=== PATIENT | female | born 1945 | race Caucasian/White ===

== ENCOUNTER 2018-01-29 15:55 | Outpatient (REF) | payer MEDICARE, MEDICAID, SELFPAY ==
[2018-01-29 17:07] LABS: Abs Immature Grans 0.01 k/cumm (0.0-0.09); Absolute Basophil Count 0.03 k/cumm (0.0-0.2); Absolute Eosinophil Count 0.23 k/cumm (0.0-0.7); Absolute Lymphocyte Count 1.14 k/cumm (1.2-3.4); Absolute Neutrophil Count 4.61 k/cumm (1.2-6.7); Basophils % 0.5; Eosinophils % 3.5; HCT 41.4 % (36.0-46.0); HGB 13.7 g/dL (12.0-15.5); Immature Grans % 0.2; Lymphocytes % 17.5; Mean Corp. HGB Concentration 33.1 g/dL (32.0-36.0); Mean Corpuscular Hemoglobin 31.2 pg (27.0-33.0); Mean Corpuscular Volume 94.3 fL (80-95); Mean Platelet Volume 11.7 fL (8.0-11.0); Monocytes % 7.7; Neutrophils % 70.6; Platelet Count 278 x1000/uL (130-400); RBC 4.39 m/cumm (4.00-5.20); RBC Distribution Width 14.1 % (11.7-14.6); White Blood Cell Count 6.52 k/cumm (4.4-10.8)
[2018-01-29 17:23] LABS: Lithium 0.51 mmol/L (0.60-1.20)
[2018-01-29 17:29] LABS: ALT 14 U/L (12-78); AST 14 U/L (15-37); Albumin 3.1 g/dL (3.4-5.0); Alkaline Phosphatase 77 U/L (46-116); Anion Gap 7.1 mmol/L (3-11); BUN 5 mg/dL (7-18); Bilirubin, Total 0.3 mg/dL (0.2-1.0); CO2 26.9 mmol/L (21.0-32.0); CREATININE 0.88 mg/dL (0.55-1.02); Calcium 9.2 mg/dL (8.5-10.1); Chloride 106 mmol/L (98-107); Glucose 118 mg/dL (70-100); PHOSPHORUS 2.8 mg/dL (2.6-4.7); Potassium 3.5 mmol/L (3.5-5.1); Sodium 140 mmol/L (136-145)
[2018-01-30 16:12] LABS: Hemoglobin A1C 5.2 % (4.5-6.2)
[2018-01-30 22:43] LABS: Cholesterol 160 mg/dL (50-200); HDL Cholesterol 52 mg/dL (40-60); LDL CHOLESTEROL 85 mg/dL (<100); TSH 10.12 uIU/mL (0.358-3.74); Triglyceride 130 mg/dL (30-150); Vitamin B12 450 pg/mL (193-986)
[2018-02-02 10:08] LABS: Folate 10.8 ng/ml
[2018-02-02 10:18] LABS: HIV-1/2 Ag & Ab Screen Negative (NEGAT)
[2018-02-02 11:08] LABS: Syphilis Serology (RPR) Negative (Negative)
[2018-02-03 12:21] LABS: T4, Free 1.3 ng/dl (0.8-2.2)
== END 2018-01-29 16:15 ==
LOC: LBN 15:55
PROVIDERS: Visit Provider Family Medicine
DX: E05.90 Thyrotoxicosis, unspecified without thyrotoxic crisis or storm (principal); Z51.81 Encounter for therapeutic drug level monitoring; Z79.899 Other long term (current) drug therapy; Z11.4 Encounter for screening for human immunodeficiency virus [HIV]; D64.9 Anemia, unspecified; I10 Essential (primary) hypertension; R62.7 Adult failure to thrive; F31.2 Bipolar disorder, current episode manic severe with psychotic features; F25.9 Schizoaffective disorder, unspecified; E03.9 Hypothyroidism, unspecified; E78.5 Hyperlipidemia, unspecified
CPT/HCPCS: 80053; 80061; 80069; 83721; 87389; 80178; 82607; 82746; 83036; 84439; 84443; 85025; 86592

== ENCOUNTER 2018-10-02 20:39 | Outpatient (REF) | payer MEDICARE, MEDICAID, SELFPAY ==
[2018-10-02 21:21] LABS: Abs Immature Grans 0.02 k/cumm (0.0-0.09); Absolute Basophil Count 0.01 k/cumm (0.0-0.2); Absolute Eosinophil Count 0.09 k/cumm (0.0-0.7); Absolute Lymphocyte Count 0.81 k/cumm (1.2-3.4); Absolute Monocyte Count 0.77 k/cumm (0.11-0.7); Absolute Neutrophil Count 7.44 k/cumm (1.2-6.7); Basophils % 0.1; HGB 10.9 g/dL (12.0-15.5); Immature Grans % 0.2; Lymphocytes % 8.9; Mean Corp. HGB Concentration 31.1 g/dL (32.0-36.0); Mean Corpuscular Hemoglobin 28.9 pg (27.0-33.0); Mean Corpuscular Volume 92.8 fL (80-95); Mean Platelet Volume 11.4 fL (8.0-11.0); Monocytes % 8.4; Neutrophils % 81.4; Platelet Count 286 x1000/uL (130-400); RBC 3.77 m/cumm (4.00-5.20); RBC Distribution Width 14.7 % (11.7-14.6); White Blood Cell Count 9.14 k/cumm (4.4-10.8)
[2018-10-02 21:24] LABS: ALT 35 U/L (12-78); AST 57 U/L (15-37); Albumin 1.7 g/dL (3.4-5.0); Alkaline Phosphatase 126 U/L (46-116); Anion Gap 8.6 mmol/L (3-11); BUN 13 mg/dL (7-18); Bilirubin, Total 0.4 mg/dL (0.2-1.0); CO2 29.4 mmol/L (21.0-32.0); CREATININE 0.57 mg/dL (0.55-1.02); Calcium 8.3 mg/dL (8.5-10.1); Chloride 107 mmol/L (98-107); Glucose 98 mg/dL (70-100); Potassium 3.2 mmol/L (3.5-5.1); Sodium 145 mmol/L (136-145); Total Protein 5.1 g/dL (6.4-8.2)
== END 2018-10-02 20:59 ==
LOC: LBN 20:39
PROVIDERS: Visit Provider Family Medicine
DX: M62.81 Muscle weakness (generalized) (principal); I10 Essential (primary) hypertension
CPT/HCPCS: 80053; 85025

== ENCOUNTER 2019-11-09 15:47 | Outpatient (REF) | payer MEDICARE, MEDICAID, SELFPAY ==
[2019-11-09 13:56] LABS: HCT 43.1 % (36.0-46.0); HGB 13.4 g/dL (11.2-15.7)
[2019-11-09 14:30] LABS: ALT 15 U/L (14-59); AST 14 U/L (15-37); Albumin 2.7 g/dL (3.4-5.0); Alkaline Phosphatase 79 U/L (46-116); Anion Gap 6.6 mmol/L (3-11); BUN 21 mg/dL (7-18); Bilirubin, Total 0.2 mg/dL (0.2-1.0); CO2 29.4 mmol/L (21.0-32.0); CREATININE 0.62 mg/dL (0.55-1.02); Calcium 8.5 mg/dL (8.5-10.1); Chloride 108 mmol/L (98-107); Glucose 71 mg/dL (74-106); Potassium 4.3 mmol/L (3.5-5.1); Sodium 144 mmol/L (136-145); Total Protein 5.5 g/dL (6.4-8.2); Vitamin B12 259 pg/mL (193-986)
[2019-11-11 05:25] LABS: Vitamin D 25 Total 24.1 ng/ml (30-100)
== END 2019-11-09 16:07 ==
LOC: LBN 15:47
PROVIDERS: Visit Provider Family Medicine
DX: E43 Unspecified severe protein-calorie malnutrition (principal); R62.7 Adult failure to thrive
CPT/HCPCS: 80053; 82306; 82607; 85014; 85018

== ENCOUNTER 2022-01-18 16:11 | Outpatient (REF) | payer MEDICARE, MEDICAID, SELFPAY ==
[2022-01-18 16:06] LABS: Bilirubin Negative (Negative); Blood Trace-intact (Negative); Clarity Cloudy (Clear); Glucose Negative (Negative); Ketones Negative (Negative); Leukocyte Esterase Large (Negative); Nitrite Negative (Negative); pH >= 9.0 (5-8)
[2022-01-18 16:12] LABS: Bacteria Many HPF (Negative); Epithelial Cells Rare HPF (Negative)
[2022-01-18 16:13] LABS: C & S Indicated? C&S Done As Ordered; Casts Negative LPF (Negative); Crystals Many Triple Phos HPF (Negative); Mucus Negative (Negative)
== END 2022-01-18 16:12 | disposition home or self-care (01) ==
LOC: LBN 16:11
PROVIDERS: PCP Family Medicine; Visit Provider Family Medicine
DX: N39.0 Urinary tract infection, site not specified (principal)
CPT/HCPCS: 87077; 81003; 81015; 87086; 87186

== ENCOUNTER 2022-01-23 21:32 | Outpatient (REF) | payer MEDICARE, MEDICAID, SELFPAY ==
[2022-01-23 22:41] LABS: TSH 3.45 uIU/mL (0.36-3.74)
== END 2022-01-23 21:33 | disposition home or self-care (01) ==
LOC: LBN 21:32
PROVIDERS: PCP Family Medicine; Visit Provider Family Medicine
DX: E03.9 Hypothyroidism, unspecified (principal)
CPT/HCPCS: 84443

== ENCOUNTER 2022-02-28 21:20 | Outpatient (REF) | payer MEDICARE, MEDICAID, SELFPAY ==
[2022-02-28 22:34] LABS: Bilirubin Negative (Negative); Blood Trace-intact (Negative); Clarity Cloudy (Clear); Glucose Negative (Negative); Ketones Negative (Negative); Leukocyte Esterase Large (Negative); Nitrite Positive (Negative); Urobilinogen 0.2 EU/dL (Up TO 0.2); pH >= 9.0 (5-8)
[2022-02-28 22:47] LABS: Bacteria Many HPF (Negative); C & S Indicated? Yes; Crystals Many Triple Phos HPF (Negative); Epithelial Cells Rare HPF (Negative); Mucus Moderate (Negative); WBC >50 HPF (0-5)
== END 2022-02-28 21:21 | disposition home or self-care (01) ==
LOC: NCHCN 21:20
PROVIDERS: PCP Family Medicine; Visit Provider Family Medicine
DX: N39.0 Urinary tract infection, site not specified (principal)
CPT/HCPCS: 87077; 81003; 81015; 87086; 87186

== ENCOUNTER 2023-03-18 20:46 | Outpatient (REF) | payer MEDICARE, MEDICAID, SELFPAY ==
[2023-03-18 15:15] LABS: TSH 1.89 uIU/mL (0.36-3.74)
--- OUTSIDE RECORDS SUMMARY | 2023-03-18 20:48 | XMS_ITS | CCD ---
Author Name Unknown Address [address] [place] [address] [phone] Organization Unknown Address [address] [place] [address] [phone] Care Team Providers Care [place] Opener Name Role Phone ELIJAH ROLDAN Attending Physician [phone] Vital Signs Unknown or Not Available. Allergies Allergy Code Allergy Type Reaction Status PENICILLINS (CLASS) 52561 Drug allergy UNKNOWN Act kane SULFA (sulfonamide) 0 Drug allergy LIP SWELLING A ctive cipro {Clinical monitoring unavailable} 0 Drug al lergy SWELLING Active Procedures Unknown or Not Available. History of Immunizations Immunization Code Date Pneumococcal conjugate PCV 13 133 Problems Problem Code Start Date Resolved Date Status Schizoaffective disorder 70998254 Active History of coronary artery d isease with stent placement 530007938 Active Bipolar disorder 32890094 Active Altered mental status 353392606 Act kane Developmental delay 758087758 Activ e Dementia 56834652 Active Sepsis 63077476 Active Urinary tract infection 25478691 A ctive Hypotension 72976700 Active Poor responsiveness 205285887 Activ e Acute kidney injury 32530033 Activ e Hypoxia 955429367 Active Bacteremia caused by Gram-ne gative bacteria 860247801310 Active LVH - Left ventricular hypertrophy 20704808 0 12/11/2022 Resolved History of cataract extraction 523520553 12/11 Resolved CORONARY ATHEROSCLEROSIS OF [place] CORONARY ARTERY 7099718587028 12/11/2022 Resolved Mental retardation 99408459 12/11/2022 Resolv ed Hypertension 59655034 12/11/2022 Resolved Hyperlipidemia 72796724 12/11/2022 Resolved History of myocardial infarction 516435458 Resolved History of attempted suicide 864187108 023 Resolved Tardive dyskinesia 235486851 12/11/2022 Resolv ed Major depression 592171472 12/11/2022 Resolved History of renal failure 458704506 12/11/2022 Resolved History of facial injury 447095115 12/11/2022 Resolved Unspecified hemorrhoids 06367966 12/11/2022 R esolved Results Unknown or Not Available. Active Medications Medication Code Dose Units Frequency Route Modificatio n Start Date/Time Cephalexin 500MG Oral Capsule 101383 1 CAPSULE THREE TIMES A DAY ORAL 12/16/2022 11:10 Prescription Detail TAKE 1 CAPSULE ORAL THREE TIMES A DAY TH ROUGH 12/20/22. FIRST DOSE IN AM ON 12/17/22. Acetaminophen 650MG Rectal Suppository 080191 650 MILLIGRAMS NEEDED EVERY 4 HOURS RECTAL 12/16/2022 11:06 Prescription Detail INSERT 650 MILLIGRAMS RECTAL NEEDED E VERY 4 HOURS Aspirin 81MG Oral Tablet, Chewable 685152 81 MILLIGRAMS DAILY ORAL 11:06 Prescription Detail TAKE 81 MILLIGRAMS ORAL DAILY Benztropine Mesylate 0.5MG Oral Tablet 950444 0.5 MILLIGRAMS TWICE A DAY ORAL 12/16/2022 11:06 Prescription Detail TAKE 0.5 MILLIGRAMS ORAL TWICE A DAY clonazePAM 0.5MG Oral Tablet, Disintegrating 055455 0.5 MILLIGRAMS DAILY ORAL 11/29 11:06 Prescription Detail TAKE 0.5 MILLIGRAMS ORAL DAILY clonazePAM 1MG Oral Tablet 633537 1 MILLIGRAMS DAILY ORAL 023 11:06 Prescription Detail TAKE 1 MILLIGRAMS ORAL DAILY Docusate 100MG Oral Capsule, Liquid Filled 2216311 100 MILLIGRAMS NEEDED DAILY ORAL 12/16/2022 11:06 Prescription Detail TAKE 100 MILLIGRAMS ORAL NEEDED DAILY guaiFENesin 100MG/5ML Oral Syrup 1137768336 0 10 mL NEEDED EVERY 6 HOURS ORAL 12/16/2022 11:06 Prescription Detail TAKE 10 mL ORAL NEEDED EVERY 6 HOURS Levothyroxine Sodium 88MCG Oral Tablet 794469 88 MCG DAILY ORAL 12/17/19 11:06 Prescription Detail TAKE 88 MCG ORAL DAILY Morphine Sulfate 20MG/1ML Oral Solution 787117 0.5 mL TWICE A DAY ORAL 12/16/2022 11:06 Prescription Detail TAKE 0.5 mL ORAL TWICE A DAY Morphine Sulfate 20MG/1ML Oral Solution 280421 0.25 mL NEEDED EVERY 4 HOURS ORAL 12/16/2022 11:06 Prescription Detail TAKE 0.25 mL ORAL NEEDED EVERY 4 HOUR S Polyethylene Glycol 17GM/1Dose Oral Powder for Solution 6629242639 0 1 EACH DAILY ORAL 12/16/2022 11:06 Prescription Detail TAKE 1 EACH ORAL DAILY Potassium Chloride 10MEQ Oral Tablet, Extended Release 816700 1 TABLET TWICE A DAY ORAL 12/16/2022 11:06 Prescription Detail TAKE 1 TABLET ORAL TWICE A DAY Remeron 15MG Oral Tablet 675129 7.5 MILLIGRAMS EVERY EVENING ORAL 12/16/2022 11:06 Prescription Detail TAKE 7.5 MILLIGRAMS ORAL EVERY EVENING RisperDAL 2MG Oral Tablet 939684 2 MILLIGRAMS TWICE A DAY ORAL 12/16/2022 11:06 Prescription Detail TAKE 2 MILLIGRAMS ORAL TWICE A DAY Voltaren Gel 1% Topical application Gel/Jelly 672612 1 EACH NEEDED EVERY 4 HOURS TOPICAL APPLICATION 12/16/2022 11:06 Prescription Detail 1 EACH TOPICAL APPLICATION NEEDED AUGUSTUS RY 4 HOURS Acetaminophen 325MG Oral Tablet 263522 650 MILLIGRAMS NEEDED EVERY 4HRS ORAL 05/16/2014 08:01 Prescription Detail TAKE 650 MILLIGRAMS ORAL NEEDED EVERY 4HRS Bisacodyl 5MG Oral Tablet, Enteric Coated 718635 5 MILLIGRAMS NEEDED DAILY ORAL 04/26/2014 10:05 Prescription Detail TAKE 5 MILLIGRAMS ORAL NEEDED DAILY Senna 8.6MG Oral Tablet 278943 8.6 MILLIGRAMS NEEDED DAILY ORAL 08/29/2013 06:52 Prescription Detail TAKE 8.6 MILLIGRAMS ORAL NEEDED DAILY Simvastatin 20MG Oral Tablet 660490 20 MILLIGRAMS EVERY EVENING ORAL 08/29/2013 06:52 Prescription Detail TAKE 20 MILLIGRAMS ORAL EVERY EVENING Medications Administered During Visit Unknown or Not Available. Encounters Encounter Diagnosis Diagnosis Code Start Date Urinary tract infection, site not specified N390 12/11/2022 Social History Smoking Status Code Start Date End Date Former smoker 5394142 Patient Decision Aids Unknown or Not Available. Discharge Instructions You were admitted to [facility] on 12/11/2022 00:56 with a principal diagnosis of Urinary tract infection, site not specified You were discharged from [facility] on 12/16/2022 00:56 Should you have any questions prior to discharge, please contact a member of your healthcare team. If you have left the hospital and have any questions, please contact your primary care physician. Chief Complaint and Reason For Visit Unknown or Not Available. Function Status Unknown or Not Available. Plan of Care Unknown or Not Available. Referral/Transition of Care Unknown or Not Available.
--- OUTSIDE RECORDS SUMMARY | 2023-03-18 20:48 | XMS_ITS | CCD ---
Author Name Unknown Address [address] [place] [address] [phone] Organization Unknown Address [address] [place] [address] [phone] Care Team Providers Care Dupligraph Operator Name Role Phone RANDELL SANTO Attending Physician [phone] Vital Signs Unknown or Not Available. Allergies Allergy Code Allergy Type Reaction Status PENICILLINS (CLASS) 07212 Drug allergy UNKNOWN Act kane SULFA (sulfonamide) 0 Drug allergy LIP SWELLING A ctive Procedures Unknown or Not Available. History of Immunizations Immunization Code Date Pneumococcal conjugate PCV 13 133 Problems Problem Code Start Date Resolved Date Status Schizoaffective disorder 88539336 Active History of coronary artery d isease with stent placement 970850408 Active Bipolar disorder 74110234 Active Altered mental status 852169919 Act kane Developmental delay 971313888 Activ e Dementia 78185609 Active Sepsis 57914909 Active Urinary tract infection 85694372 A ctive Hypotension 15482514 Active Poor responsiveness 837051593 Activ e Acute kidney injury 62619849 Activ e Hypoxia 849209331 Active Bacteremia caused by Gram-ne gative bacteria 489965485196 Active LVH - Left ventricular hypertrophy 23192851 0 12/11/2022 Resolved History of cataract extraction 348632352 12/11 Resolved CORONARY ATHEROSCLEROSIS OF [place] CORONARY ARTERY 0993823012990 12/11/2022 Resolved Mental retardation 11381037 12/11/2022 Resolv ed Hypertension 81737740 12/11/2022 Resolved Hyperlipidemia 42289894 12/11/2022 Resolved History of myocardial infarction 539724878 Resolved History of attempted suicide 873821631 023 Resolved Tardive dyskinesia 351333177 12/11/2022 Resolv ed Major depression 662539788 12/11/2022 Resolved History of renal failure 555966743 12/11/2022 Resolved History of facial injury 144510619 12/11/2022 Resolved Unspecified hemorrhoids 77923964 12/11/2022 R esolved Results Unknown or Not Available. Active Medications Medication Code Dose Units Frequency Route Modificatio n Start Date/Time Cephalexin 500MG Oral Capsule 964070 1 CAPSULE THREE TIMES A DAY ORAL 12/16/2022 11:10 Prescription Detail TAKE 1 CAPSULE ORAL THREE TIMES A DAY TH ROUGH 12/20/22. FIRST DOSE IN AM ON 12/17/22. Acetaminophen 650MG Rectal Suppository 273743 650 MILLIGRAMS NEEDED EVERY 4 HOURS RECTAL 12/16/2022 11:06 Prescription Detail INSERT 650 MILLIGRAMS RECTAL NEEDED E VERY 4 HOURS Aspirin 81MG Oral Tablet, Chewable 635801 81 MILLIGRAMS DAILY ORAL 11:06 Prescription Detail TAKE 81 MILLIGRAMS ORAL DAILY Benztropine Mesylate 0.5MG Oral Tablet 947544 0.5 MILLIGRAMS TWICE A DAY ORAL 12/16/2022 11:06 Prescription Detail TAKE 0.5 MILLIGRAMS ORAL TWICE A DAY clonazePAM 0.5MG Oral Tablet, Disintegrating 026124 0.5 MILLIGRAMS DAILY ORAL 11/29 11:06 Prescription Detail TAKE 0.5 MILLIGRAMS ORAL DAILY clonazePAM 1MG Oral Tablet 054000 1 MILLIGRAMS DAILY ORAL 023 11:06 Prescription Detail TAKE 1 MILLIGRAMS ORAL DAILY Docusate 100MG Oral Capsule, Liquid Filled 7684606 100 MILLIGRAMS NEEDED DAILY ORAL 12/16/2022 11:06 Prescription Detail TAKE 100 MILLIGRAMS ORAL NEEDED DAILY guaiFENesin 100MG/5ML Oral Syrup 9003254193 0 10 mL NEEDED EVERY 6 HOURS ORAL 12/16/2022 11:06 Prescription Detail TAKE 10 mL ORAL NEEDED EVERY 6 HOURS Levothyroxine Sodium 88MCG Oral Tablet 393748 88 MCG DAILY ORAL 12/17/19 11:06 Prescription Detail TAKE 88 MCG ORAL DAILY Morphine Sulfate 20MG/1ML Oral Solution 000017 0.5 mL TWICE A DAY ORAL 12/16/2022 11:06 Prescription Detail TAKE 0.5 mL ORAL TWICE A DAY Morphine Sulfate 20MG/1ML Oral Solution 348737 0.25 mL NEEDED EVERY 4 HOURS ORAL 12/16/2022 11:06 Prescription Detail TAKE 0.25 mL ORAL NEEDED EVERY 4 HOUR S Polyethylene Glycol 17GM/1Dose Oral Powder for Solution 6922030996 0 1 EACH DAILY ORAL 12/16/2022 11:06 Prescription Detail TAKE 1 EACH ORAL DAILY Potassium Chloride 10MEQ Oral Tablet, Extended Release 747650 1 TABLET TWICE A DAY ORAL 12/16/2022 11:06 Prescription Detail TAKE 1 TABLET ORAL TWICE A DAY Remeron 15MG Oral Tablet 600937 7.5 MILLIGRAMS EVERY EVENING ORAL 12/16/2022 11:06 Prescription Detail TAKE 7.5 MILLIGRAMS ORAL EVERY EVENING RisperDAL 2MG Oral Tablet 140516 2 MILLIGRAMS TWICE A DAY ORAL 12/16/2022 11:06 Prescription Detail TAKE 2 MILLIGRAMS ORAL TWICE A DAY Voltaren Gel 1% Topical application Gel/Jelly 171042 1 EACH NEEDED EVERY 4 HOURS TOPICAL APPLICATION 12/16/2022 11:06 Prescription Detail 1 EACH TOPICAL APPLICATION NEEDED AUGUSTUS RY 4 HOURS Acetaminophen 325MG Oral Tablet 488545 650 MILLIGRAMS NEEDED EVERY 4HRS ORAL 05/16/2014 08:01 Prescription Detail TAKE 650 MILLIGRAMS ORAL NEEDED EVERY 4HRS Bisacodyl 5MG Oral Tablet, Enteric Coated 094617 5 MILLIGRAMS NEEDED DAILY ORAL 04/26/2014 10:05 Prescription Detail TAKE 5 MILLIGRAMS ORAL NEEDED DAILY Senna 8.6MG Oral Tablet 204610 8.6 MILLIGRAMS NEEDED DAILY ORAL 08/29/2013 06:52 Prescription Detail TAKE 8.6 MILLIGRAMS ORAL NEEDED DAILY Simvastatin 20MG Oral Tablet 599790 20 MILLIGRAMS EVERY EVENING ORAL 08/29/2013 06:52 Prescription Detail TAKE 20 MILLIGRAMS ORAL EVERY EVENING Medications Administered During Visit Unknown or Not Available. Encounters Encounter Diagnosis Diagnosis Code Start Date Acute kidney failure, unspecified N179 12/11/2022 Social History Smoking Status Code Start Date End Date Former smoker 8304140 Patient Decision Aids Unknown or Not Available. Discharge Instructions You were admitted to [facility] on 12/11/2022 10:45 with a principal diagnosis of Acute kidney failure, unspecified You were discharged from [facility] on 12/11/2022 16:36 Should you have any questions prior to [...]
--- OUTSIDE RECORDS SUMMARY | 2023-03-18 20:49 | XMS_ITS | CCD ---
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 BMI (Body Mass Index) 23.77 kg/m^2 12/11/2022 12: 24 Initial VS Weight Measured 147.3 lbs 12/11/2022 12:24 Ini tial VS Height 66 in 12/11/2022 12:24 Initial VS BSA (Body Surface Area) 1.76 m^2 12/11/2022 1 2:24 Initial VS BP Systolic 80 mmHg 12/11/2022 12:24 Initial VS BP Diastolic 64 mmHg 12/11/2022 12:24 Initia l VS Respiratory Rate 16 bpm 12/11/2022 12:24 In itial VS Heart Rate 108 bpm 12/11/2022 12:24 Initial VS O2 % BldC Oximetry 94 % 12/11/2022 12:24 Initial VS Body Temperature 36.4 degrees 12/11/2022 12:24 In itial VS BP Systolic 144 mmHg 12/16/2022 07:50 Most Re cent VS BP Diastolic 62 mmHg 12/16/2022 07:50 Most R ecent VS Respiratory Rate 18 bpm 12/16/2022 07:[address] Recent VS Heart Rate 72 bpm 12/16/2022 07:50 Most Rec ent VS O2 % BldC Oximetry 94 % 12/16/2022 07:50 Most Recent VS Body Temperature 36.1 degrees 12/16/2022 07:[address] Recent VS Allergies Allergy Code Allergy Type Reaction Status PENICILLINS (CLASS) 46236 Drug allergy UNKNOWN Act kane SULFA (sulfonamide) 0 Drug allergy LIP SWELLING A ctive cipro {Clinical monitoring unavailable} 0 Drug al lergy SWELLING Active Procedures Unknown or Not Available. History of Immunizations Immunization Code Date Pneumococcal conjugate PCV 13 133 Problems Problem Code Start Date Resolved Date Status Schizoaffective disorder 00768407 Active History of coronary artery d isease with stent placement 964989592 Active Bipolar disorder 94338508 Active Altered mental status 960013104 Act kane Developmental delay 154734925 Activ e Dementia 01035372 Active Sepsis 89814874 Active Urinary tract infection 76199798 A ctive Hypotension 92082667 Active Poor responsiveness 781690371 Activ e Acute kidney injury 20366244 Activ e Hypoxia 187788836 Active Bacteremia caused by Gram-ne gative bacteria 447422699107 Active LVH - Left ventricular hypertrophy 81762699 0 12/11/2022 Resolved History of cataract extraction 698563953 12/11 Resolved CORONARY ATHEROSCLEROSIS OF [place] CORONARY ARTERY 5719594649955 12/11/2022 Resolved Mental retardation 33739246 12/11/2022 Resolv ed Hypertension 83530902 12/11/2022 Resolved Hyperlipidemia 12177826 12/11/2022 Resolved History of myocardial infarction 002685964 Resolved History of attempted suicide 842258109 023 Resolved Tardive dyskinesia 895413740 12/11/2022 Resolv ed Major depression 607024648 12/11/2022 Resolved History of renal failure 624543628 12/11/2022 Resolved History of facial injury 145434156 12/11/2022 Resolved Unspecified hemorrhoids 45796691 12/11/2022 R esolved Results BASIC METABOLIC PANEL (BMP) - Collect Date/Time: 12/16/2022 06:44 Test Name Code Test Result Test Units Test Ref Rang e GLUCOSE 2345-7 119 mg/dL L=70 H=116 BUN 3094-0 23 mg/dL L=6 H=25 CREATININE 2160-0 0.83 mg/dL L=0.51 H=0.95 SODIUM SERUM 2951-2 150 mmol/L L=136 H=145 POTASSIUM SERUM 2823-3 3.2 mmol/L L=3.4 H=5 .2 CHLORIDE SERUM 2075-0 118 mmol/L L=96 H=110 CARBON DIOXIDE (CO2) 2028-9 26 mmol/L L=22 H=34 ANION GAP 09096-8 6.1 mmol/L CALCIUM SERUM 48782-7 7.6 mg/dL L=8.2 H=10. 2 AGE 77 years eGFR (non-Afr.Amer.) 11673-3 67 mL/min eGFR (Afr-Cambodian) 91298-3 81 mL/min BASIC METABOLIC PANEL (BMP) - Collect Date/Time: 12/14/2022 09:25 Test Name Code Test Result Test Units Test Ref Rang e GLUCOSE 2345-7 105 mg/dL L=70 H=116 BUN 3094-0 32 mg/dL L=6 H=25 CREATININE 2160-0 1.07 mg/dL L=0.51 H=0.95 SODIUM SERUM 2951-2 150 mmol/L L=136 H=145 POTASSIUM SERUM 2823-3 3.8 mmol/L L=3.4 H=5 .2 CHLORIDE SERUM 2075-0 118 mmol/L L=96 H=110 CARBON DIOXIDE (CO2) 8-9 24 mmol/L L=22 H=34 ANION GAP 68017-1 7.7 mmol/L CALCIUM SERUM 10120-5 7.8 mg/dL L=8.2 H=10. 2 AGE 77 years eGFR (non-Afr.Amer.) 37260-2 50 mL/min eGFR (Afr-Cambodian) 03358-2 60 mL/min BASIC METABOLIC PANEL (BMP) - Collect Date/Time: 12/13/2022 06:12 Test Name Code Test Result Test Units Test Ref Rang e GLUCOSE 2345-7 150 mg/dL L=70 H=116 BUN 3094-0 48 mg/dL L=6 H=25 CREATININE 2160-0 1.49 mg/dL L=0.51 H=0.95 SODIUM SERUM 2951-2 146 mmol/L L=136 H=145 POTASSIUM SERUM 2823-3 3.1 mmol/L L=3.4 H=5 .2 CHLORIDE SERUM 2075-0 117 mmol/L L=96 H=110 CARBON DIOXIDE (CO2) 2028-9 22 mmol/L L=22 H=34 ANION GAP 59697-5 7.1 mmol/L CALCIUM SERUM 18337-4 7.9 mg/dL L=8.2 H=10. 2 AGE 77 years eGFR (non-Afr.Amer.) 18750-1 34 mL/min eGFR (Afr-Cambodian) 76763-3 41 mL/min BASIC METABOLIC PANEL (BMP) - Collect Date/Time: 12/12/2022 06:25 Test Name Code Test Result Test Units Test Ref Rang e GLUCOSE 2345-7 63 mg/dL L=70 H=116 BUN 3094-0 63 mg/dL L=6 H=25 CREATININE 2160-0 2.32 mg/dL L=0.51 H=0.95 SODIUM SERUM 2951-2 147 mmol/L L=136 H=145 POTASSIUM SERUM 2823-3 3.9 mmol/L L=3.4 H=5 .2 CHLORIDE SERUM 2075-0 115 mmol/L L=96 H=110 CARBON DIOXIDE (CO2) 2028-9 23 mmol/L L=22 H=34 ANION GAP 74118-8 9.0 mmol/L CALCIUM SERUM 26698-5 7.1 mg/dL L=8.2 H=10. 2 AGE 77 years eGFR (non-Afr.Amer.) 01773-9 20 mL/min eGFR (Afr-Cambodian) 54029-9 25 mL/min COMPREHENSIVE METABOLIC PANE L (CMP) - Collect Date/Time: 12/11/2022 12:58 Test Name Code Test Result Test Units Test Ref Rang e GLUCOSE 2345-7 92 mg/dL L=70 H=116 BUN 3094-0 61 mg/dL L=6 H=25 CREATININE 2160-0 3.45 mg/dL L=0.51 H=0.95 SODIUM SERUM 2951-2 146 mmol/L L=136 H=145 POTASSIUM SERUM 2823-3 4.1 mmol/L L=3.4 H=5 .2 CHLORIDE SERUM 2075-0 114 mmol/L L=96 H=110 CARBON DIOXIDE (CO2) 2028-9 21 mmol/L L=22 H=34 ANION GAP 85033-7 10.6 mmol/L CALCIUM SERUM 84402-8 7.6 mg/dL L=8.2 H=10. 2 BILIRUBIN TOTAL 1975-2 0.5 mg/dL L=0.0 H=1 .3 ALK. PHOS. 6768-6 71 U/L L=46 H=116 SGOT (AST) 1920-8 48 U/L L=15 H=37 SGPT (ALT) 1742-6 11 U/L L=12 H=78 TOTAL PROTEIN 2885-2 4.8 gm/dL L=6.0 H=8.0 ALBUMIN 1751-7 1.7 gm/dL L=3.4 H=5.0 AGE 77 years eGFR (non-Afr.Amer.) 09344-0 13 mL/min eGFR (Afr-Cambodian) 54993-4 16 mL/min LACTIC ACID - Collect Date/T ray: 12/11/2022 12:58 Test Name Code Test Result Test Units Test Ref Rang e LACTIC ACID 49066-0 3.8 mmol/L L=0.7 H=2.1 LIPASE* NEW - Collect Date/T ray: 12/11/2022 12:58 Test Name Code Test Result Test Units Test Ref Rang e LIPASE. <6 U/L L=16 H=77 MAGNESIUM SERUM* - Collect D ate/Time: 12/14/2022 09:25 Test Name Code Test Result Test Units Test Ref Rang e MAGNESIUM 21552-4 1.7 mg/dL L=1.8 H=2.4 CBC W/ DIFFERENTIAL* - Colle ct Date/Time: 12/16/2022 06:44 Test Name Code Test Result Test Units Test Ref Rang e WBC 6690-2 6.39 th/cmm L=5.00 H=10.00 NEUT % 78.5 % L=40.0 H=80.0 LYMPH % 9.5 % L=10.0 H=50.0 MONO % 66122-2 8.3 % L=2.0 H=12.0 EOS % 1.3 % L=0.0 H=8.0 BASO % 0.2 % L=0.0 H=3.0 IG % 2514-8 2.2 % L=0.0 H=1.1 NRBC % 28493-3 0.0 % L=0.0 H=0.0 NEUT abs count 751-8 5.0 th/cmm L=1.6 H=8. 4 LYMPH abs count 731-0 0.6 th/cmm L=1.5 H=4 .0 MONO abs count 742-7 0.5 th/cmm L=0.2 H=1. 0 EOS abs count 711-2 0.1 th/cmm L=0.0 H=0.5 BASO abs count 704-7 0.0 th/cmm L=0.0 H=0. 2 IG abs count 82159-1 0.1 th/cmm L=0.0 H=0.1 NRBC abs count 04496-0 0.0 mil/cmm L=0.0 H=0. 0 RBC 789-8 4.15 mil/cmm L=3.90 H=5.40 HEMOGLOBIN 718-7 12.4 gm/dL L=12.0 H=16.0 HEMATOCRIT 4544-3 38 % L=37 H=47 MCV 787-2 93 fL L=82 H=92 MCH 785-6 29.9 pg L=27.0 H=31.0 MCHC 786-4 32.3 % L=32.0 H=36.0 RDW-SD 788-0 50.3 fL L=39.0 H=49.0 PLATELET COUNT 777-3 142 th/cmm L=150 H=45 0 CBC W/ DIFFERENTIAL* - [facility] Date/Time: 12/14/2022 09:25 Test Name Code Test Result Test Units Test Ref Rang e WBC 6690-2 10.24 th/cmm L=5.00 H=10.00 NEUT % 81.3 % L=40.0 H=80.0 LYMPH % 8.1 % L=10.0 H=50.0 MONO % 63977-8 7.5 % L=2.0 H=12.0 EOS % 1.3 % L=0.0 H=8.0 BASO % 0.4 % L=0.0 H=3.0 IG % 2514-8 1.4 % L=0.0 H=1.1 NRBC % 19528-8 0.0 % L=0.0 H=0.0 NEUT abs count 751-8 8.3 th/cmm L=1.6 H=8. 4 LYMPH abs count 731-0 0.8 th/cmm L=1.5 H=4 .0 MONO abs count 742-7 0.8 th/cmm L=0.2 H=1. 0 EOS abs count 711-2 0.1 th/cmm L=0.0 H=0.5 BASO abs count 704-7 0.0 th/cmm L=0.0 H=0. 2 IG abs count 47471-3 0.1 th/cmm L=0.0 H=0.1 NRBC abs count 08222-3 0.0 mil/cmm L=0.0 H=0. 0 RBC 789-8 4.16 mil/cmm L=3.90 H=5.40 HEMOGLOBIN 718-7 12.3 gm/dL L=12.0 H=16.0 HEMATOCRIT 4544-3 39 % L=37 H=47 MCV 787-2 94 fL L=82 H=92 MCH 785-6 29.6 pg L=27.0 H=31.0 MCHC 786-4 31.6 % L=32.0 H=36.0 RDW-SD 788-0 52.3 fL L=39.0 H=49.0 PLATELET COUNT 777-3 77 th/cmm L=150 H=45 0 CBC W/ DIFFERENTIAL* - [facility] ct Date/Time: 12/13/2022 06:12 Test Name Code Test Result Test Units Test Ref Rang e WBC 6690-2 20.19 th/cmm L=5.00 H=10.00 NEUT % 94.4 % L=40.0 H=80.0 LYMPH % 2.9 % L=10.0 H=50.0 MONO % 13982-2 2.0 % L=2.0 H=12.0 EOS % 0.0 % L=0.0 H=8.0 BASO % 0.3 % L=0.0 H=3.0 IG % 2514-8 0.4 % L=0.0 H=1.1 NRBC % 08605-2 0.0 % L=0.0 H=0.0 NEUT abs count 751-8 19.0 th/cmm L=1.6 H=8. 4 LYMPH abs count 731-0 0.6 th/cmm L=1.5 H=4 .0 MONO abs count 742-7 0.4 th/cmm L=0.2 H=1. 0 EOS abs count 711-2 0.0 th/cmm L=0.0 H=0.5 BASO abs count 704-7 0.1 th/cmm L=0.0 H=0. 2 IG abs count 31910-0 0.1 th/cmm L=0.0 H=0.1 NRBC abs count 93583-7 0.0 mil/cmm L=0.0 H=0. 0 RBC 789-8 3.91 mil/cmm L=3.90 H=5.40 HEMOGLOBIN 718-7 11.5 gm/dL L=12.0 H=16.0 HEMATOCRIT 4544-3 36 % L=37 H=47 MCV 787-2 93 fL L=82 H=92 MCH 785-6 29.4 pg L=27.0 H=31.0 MCHC 786-4 31.8 % L=32.0 H=36.0 RDW-SD 788-0 50.5 fL L=39.0 H=49.0 PLATELET COUNT 777-3 75 th/cmm L=150 H=45 0 CBC W/ DIFFERENTIAL* - [facility] ct Date/Time: 12/12/2022 06:25 Test Name Code Test Result Test Units Test Ref Rang e WBC 20.94 th/cmm L=5.00 H=10.00 Segs % 75 Bands % 21 Lymphs % 99236-4 2 Monos % 66563-5 2 Eos % 0 Baso % 0 NRBC abs count 0.0 mil/cmm L=0.0 H=0. 0 RBC 3.93 mil/cmm L=3.90 H=5.40 HEMOGLOBIN 11.6 gm/dL L=12.0 H=16.0 HEMATOCRIT 37 % L=37 H=47 MCV 95 fL L=82 H=92 MCH 29.5 pg L=27.0 H=31.0 MCHC 31.0 % L=32.0 H=36.0 RDW-SD 53.3 fL L=39.0 H=49.0 PLATELET COUNT 75 th/cmm L=150 H=45 0 CBC W/ DIFFERENTIAL* - Colle ct Date/Time: 12/11/2022 12:58 Test Name Code Test Result Test Units Test Ref Rang e WBC 6690-2 18.32 th/cmm L=5.00 H=10.00 NEUT % 82.2 % L=40.0 H=80.0 LYMPH % 3.2 % L=10.0 H=50.0 MONO % 93060-6 5.0 % L=2.0 H=12.0 EOS % 0.0 % L=0.0 H=8.0 BASO % 0.0 % L=0.0 H=3.0 IG % 2514-8 9.6 % L=0.0 H=1.1 NRBC % 06140-0 0.0 % L=0.0 H=0.0 NEUT abs count 751-8 15.1 th/cmm L=1.6 H=8. 4 LYMPH abs count 731-0 0.6 th/cmm L=1.5 H=4 .0 MONO abs count 742-7 0.9 th/cmm L=0.2 H=1. 0 EOS abs count 711-2 0.0 th/cmm L=0.0 H=0.5 BASO abs count 704-7 0.0 th/cmm L=0.0 H=0. 2 IG abs count 51403-2 1.8 th/cmm L=0.0 H=0.1 NRBC abs count 62567-0 0.0 mil/cmm L=0.0 H=0. 0 RBC 789-8 4.19 mil/cmm L=3.90 H=5.40 HEMOGLOBIN 718-7 12.6 gm/dL L=12.0 H=16.0 HEMATOCRIT 4544-3 40 % L=37 H=47 MCV 787-2 96 fL L=82 H=92 MCH 785-6 30.1 pg L=27.0 H=31.0 MCHC 786-4 31.2 % L=32.0 H=36.0 RDW-SD 788-0 51.8 fL L=39.0 H=49.0 PLATELET COUNT 777-3 76 th/cmm L=150 H=45 0 BANDS % 20 METAS % 7 N/A Toxic gran 2+ N/A Vaccuol neutr 3+ N/A KYUNG COVID FLU RSV GENEXPE RT - Collect Date/Time: 12/11/2022 12:45 Test Name Code Test Result Test Units Test Ref Rang e COVID 73826-5 NEGATIVE N/A Normal: Negati ve INFLUENZA A DNA 54456-8 NEGATIVE N/A Normal: N egative INFLUENZA B DNA 22989-5 NEGATIVE N/A Normal: N egative RSV DNA 61124-9 NEGATIVE N/A Normal: Negati ve CULT URINE CULTURE* - Collec t Date/Time: 12/11/2022 13:23 Test Name Code Test Result Test Units Test Ref Rang e COLLECTION MODE: 76165-4 INDWELLING CATH N/A GRAM STAIN* - Collect Date/T ray: 12/12/2022 15:42 Test Name Code Test Result Test Units Test Ref Rang e SOURCE- Blood culture N/A PREDOMINANT ORGANISM Gram neg rods N/A GRAM STAIN* - Collect Date/T ray: 12/11/2022 13:05 Test Name Code Test Result Test Units Test Ref Rang e SOURCE- Blood culture N/A PREDOMINANT ORGANISM Gram neg rods N/A GRAM STAIN* - Collect Date/T ray: 12/11/2022 13:05 Test Name Code Test Result Test Units Test Ref Rang e SOURCE- Blood culture N/A PREDOMINANT ORGANISM Gram neg rods N/A GRAM STAIN* - Collect Date/T ray: 12/11/2022 12:58 Test Name Code Test Result Test Units Test Ref Rang e SOURCE- Blood culture N/A PREDOMINANT ORGANISM Gram neg rods N/A URINALYSIS WITH MICRO AND RE FLEX CULTUR* - Collect Date/Time: 12/11/2022 13:23 Test Name Code Test Result Test Units Test Ref Rang e COLLECTION MODE: 17964-4 INDWELLING CATH N/A Color 5778-6 BROWN N/A yellow Appearance 5767-9 CLOUDY N/A clear Glucose urine 03764-9 DNR N/A negative mg /dl Bilirubin 5770-3 DNR N/A negative Ketones 2514-8 DNR N/A negative mg/dl Spec gravity 5811-5 DNR N/A 1.003 - 1.03 0 pH urine 2756-5 DNR N/A 5.0 - 7.0 Protein 15339-1 DNR N/A negative mg/dl Urobilinogen 40922-8 DNR N/A <or= 1 EU/dl Nitrite. 5802-4 DNR N/A negative Blood 5794-3 DNR N/A negative Leukocytes. DNR N/A negative WBCs. 37325-9 >100 N/A 0-5 / hpf RBCs 34649-5 25-100 N/A 0-5 / hpf Epith cells none N/A 0-5 / hpf Crystals trip phos N/A none Bacteria large N/A none Mucus none N/A none Casts none N/A none /lpf Active Medications Medication Code Dose Units Frequency Route Modificatio n Start Date/Time Cephalexin 500MG Oral Capsule 161322 1 CAPSULE THREE TIMES A DAY ORAL 12/16/2022 11:10 Prescription Detail TAKE 1 CAPSULE ORAL THREE TIMES A DAY TH ROUGH 12/20/22. FIRST DOSE IN AM ON 12/17/22. Acetaminophen 650MG Rectal Suppository 818332 650 MILLIGRAMS NEEDED EVERY 4 HOURS RECTAL 12/16/2022 11:06 Prescription Detail INSERT 650 MILLIGRAMS RECTAL NEEDED E VERY 4 HOURS Aspirin 81MG Oral Tablet, Chewable 918937 81 MILLIGRAMS DAILY ORAL 11:06 Prescription Detail TAKE 81 MILLIGRAMS ORAL DAILY Benztropine Mesylate 0.5MG Oral Tablet 628557 0.5 MILLIGRAMS TWICE A DAY ORAL 12/16/2022 11:06 Prescription Detail TAKE 0.5 MILLIGRAMS ORAL TWICE A DAY clonazePAM 0.5MG Oral Tablet, Disintegrating 917074 0.5 MILLIGRAMS DAILY ORAL 11/29 11:06 Prescription Detail TAKE 0.5 MILLIGRAMS ORAL DAILY clonazePAM 1MG Oral Tablet 114931 1 MILLIGRAMS DAILY ORAL 023 11:06 Prescription Detail TAKE 1 MILLIGRAMS ORAL DAILY Docusate 100MG Oral Capsule, Liquid Filled 3281845 100 MILLIGRAMS NEEDED DAILY ORAL 12/16/2022 11:06 Prescription Detail TAKE 100 MILLIGRAMS ORAL NEEDED DAILY guaiFENesin 100MG/5ML Oral Syrup 9257532484 0 10 mL NEEDED EVERY 6 HOURS ORAL 12/16/2022 11:06 Prescription Detail TAKE 10 mL ORAL NEEDED EVERY 6 HOURS Levothyroxine Sodium 88MCG Oral Tablet 081053 88 MCG DAILY ORAL 12/17/19 11:06 Prescription Detail TAKE 88 MCG ORAL DAILY Morphine Sulfate 20MG/1ML Oral Solution 514981 0.5 mL TWICE A DAY ORAL 12/16/2022 11:06 Prescription Detail TAKE 0.5 mL ORAL TWICE A DAY Morphine Sulfate 20MG/1ML Oral Solution 464591 0.25 mL NEEDED EVERY 4 HOURS ORAL 12/16/2022 11:06 Prescription Detail TAKE 0.25 mL ORAL NEEDED EVERY 4 HOUR S Polyethylene Glycol 17GM/1Dose Oral Powder for Solution 2834669297 0 1 EACH DAILY ORAL 12/16/2022 11:06 Prescription Detail TAKE 1 EACH ORAL DAILY Potassium Chloride 10MEQ Oral Tablet, Extended Release 628722 1 TABLET TWICE A DAY ORAL 12/16/2022 11:06 Prescription Detail TAKE 1 TABLET ORAL TWICE A DAY Remeron 15MG Oral Tablet 937393 7.5 MILLIGRAMS EVERY EVENING ORAL 12/16/2022 11:06 Prescription Detail TAKE 7.5 MILLIGRAMS ORAL EVERY EVENING RisperDAL 2MG Oral Tablet 917253 2 MILLIGRAMS TWICE A DAY ORAL 12/16/2022 11:06 Prescription Detail TAKE 2 MILLIGRAMS ORAL TWICE A DAY Voltaren Gel 1% Topical application Gel/Jelly 209478 1 EACH NEEDED EVERY 4 HOURS TOPICAL APPLICATION 12/16/2022 11:06 Prescription Detail 1 EACH TOPICAL APPLICATION NEEDED AUGUSTUS RY 4 HOURS Acetaminophen 325MG Oral Tablet 652217 650 MILLIGRAMS NEEDED EVERY 4HRS ORAL 05/16/2014 08:01 Prescription Detail TAKE 650 MILLIGRAMS ORAL NEEDED EVERY 4HRS Bisacodyl 5MG Oral Tablet, Enteric Coated 784187 5 MILLIGRAMS NEEDED DAILY ORAL 04/26/2014 10:05 Prescription Detail TAKE 5 MILLIGRAMS ORAL NEEDED DAILY Senna 8.6MG Oral Tablet 946566 8.6 MILLIGRAMS NEEDED DAILY ORAL 08/29/2013 06:52 Prescription Detail TAKE 8.6 MILLIGRAMS ORAL NEEDED DAILY Simvastatin 20MG Oral Tablet 541544 20 MILLIGRAMS EVERY EVENING ORAL 08/29/2013 06:52 Prescription Detail TAKE 20 MILLIGRAMS ORAL EVERY EVENING Medications Administered During Visit Medication Dose Units Frequency Route Date/Time of Last Dose CefTRIAXone IVPB: 1GM/50ML 1 GM X1 IVP B 12/11/2022 13:18 AZITHROMYCIN IVPB: 500MG/250ML 500 MG X1 IVPB 12/11/2022 13:46 SODIUM CHLORIDE 0.9% 1000ML 1000 ML X1 IV 12/11/2022 13:06 LACTATED RINGERS 1000ML 1000 ML X1 IV 12/11/2022 13:18 LACTATED RINGERS 1000ML 1000 ML X1 IV 12/11/2022 14:42 ACETAMINOPHEN INJ IVPB: 1000MG/100ML 1000 MG PRN Q6H IVPB 12/15/2022 00:3 8 ONDANSETRON INJ SDV: 4MG/2ML 4 MG PRN Q4H I ASSOCIATE PROFESSOR OF LITERACY 12/13/2022 23:40 CefTRIAXone IVPB: 2GM/50ML 2 GM Q24H IVP B 12/15/2022 13:19 AZITHROMYCIN IVPB: 500MG/250ML 500 MG Q24H IVPB 12/15/2022 13:19 SODIUM CHLORIDE 0.9% 1000ML 1000 ML CONT IV 12/11/2022 18:40 CefTRIAXone IVPB: 1GM/50ML 1 GM X1 IVP B 12/11/2022 18:40 DEXTROSE 5% AND NACL 0.45% 1000ML 1000 ML CONT IV 12/13/2022 00:29 BENZTROPINE TABLET: 1MG 0.5 MG BID PO 12/16/2022 11:46 LEVOTHYROXINE TABLET: 88MCG 88 MCG Q7AM PO 12/16/2022 06:34 MIRTAZAPINE ORAL DISINT TABL ET: 15MG 7.5 MG BEDTIME PO 12/15/2022 21:2 7 RisperiDONE TABLET: 1MG 2 MG BID PO 12/16/2022 11:46 BENZTROPINE TABLET: 1MG 0.5 MG X1 PO 12/12/2022 12:03 LEVOTHYROXINE TABLET: 88MCG 88 MCG X1 PO 12/12/2022 12:03 RisperiDONE TABLET: 1MG 2 MG X1 PO 12/12/2022 12:03 ClonazePAM TABLET: 0.5MG 1 MG X1 PO 12/12/2022 12:03 ClonazePAM TABLET: 0.5MG 0.5 MG PRN TID PO 12/14/2022 23:26 POTASSIUM CHL TABLET: 10mEq 10 MEQ X1 PO 12/13/2022 10:20 POTASSIUM CHL IN WATER RIDER:10mEq/100ML 10 MEQ X1 IVPB 12/13/2022 10:06 POTASSIUM CHL IN WATER RIDER:10mEq/100ML 10 MEQ X1 IVPB 12/13/2022 11:18 PANTOPRAZOLE INJ SDV: 40MG 40 MG DAILY IVP 12/16/2022 10:06 PANTOPRAZOLE INJ SDV: 40MG 40 MG X1 IVP 12/13/2022 10:11 LOPERAMIDE CAPSULE: 2MG 2 MG PRN PO 12/13/2022 19:49 ClonazePAM TABLET: 0.5MG 1 MG X1 PO 12/14/2022 00:40 QUEtiapine TABLET: 25MG 25 MG X1 PO 12/14/2022 00:40 ClonazePAM TABLET: 0.5MG 1.5 MG X1 PO 12/14/2022 10:02 ClonazePAM TABLET: 0.5MG 1.5 MG DAILY PO 12/15/2022 07:47 ENOXAPARIN INJ SYRINGE: 40MG/0.4ML 40 MG Q24H SUBQ 12/15/2022 13:19 ClonazePAM TABLET: 0.5MG 0.5 MG DAILY PO 12/16/2022 11:46 POTASSIUM CHL TABLET: 10mEq 20 MEQ X1 PO 12/16/2022 11:46 CefTRIAXone IVPB: 2GM/50ML 2 GM X1 IVP B 12/16/2022 11:33 Encounters Encounter Diagnosis Diagnosis Code Start Date Urinary tract infection, site not specified N390 12/11/2022 Social History Smoking Status Code Start Date End Date Former smoker [id number] Patient Decision Aids Unknown or Not Available. Discharge Instructions You were admitted to [facility] on 12/11/2022 15:02 with a principal diagnosis of Urinary tract infection, site not specified You had the following tests done:BASIC METABOLIC PANEL (BMP)CBC W/ DIFFERENTIAL*BASIC METABOLIC PANEL (BMP)CBC W/ DIFFERENTIAL*MAGNESIUM SERUM*BASIC METABOLIC PANEL (BMP)CBC W/ DIFFERENTIAL*GRAM STAIN*BASIC METABOLIC PANEL (BMP)CBC W/ DIFFERENTIAL*CULT URINE CULTURE*URINALYSIS WITH MICRO AND REFLEX CULTUR*GRAM STAIN*GRAM STAIN*CBC W/ DIFFERENTIAL*COMPREHENSIVE METABOLIC PANEL (CMP)GRAM STAIN*LACTIC ACIDLIPASE* [place]COP[place] COVID FLU RSV GENEXPERT You were discharged from [facility] on 12/16/2022 13:40 Should you have any questions prior to discharge, please contact a member of your healthcare team. If you have left the hospital and have any questions, please contact your primary care physician. Chief Complaint and Reason For Visit Chief Complaint Date of Onset UROSEPSIS 12/11/2022 Function Status Unknown or Not Available. Plan of Care Unknown or Not Available. Referral/Transition of Care Unknown or Not Available.
== END 2023-03-18 20:47 | disposition home or self-care (01) ==
LOC: NCHCN 20:46
PROVIDERS: PCP Family Medicine; Visit Provider Family Medicine
DX: E03.9 Hypothyroidism, unspecified (principal)
CPT/HCPCS: 84443